=== PATIENT | female | born 1930 | race Caucasian/White ===

== ENCOUNTER 2016-06-28 12:18 | Inpatient (IN) | payer MEDICARE, OTHER ==
[~2016-06-28] VITALS: Ht 160 cm; Wt 68.5 kg
--- NOTE | ~2016-06-28 | PR ---
[place], [place] PROGRESS NOTE NAME: ANTON ROMO UNIT #: [id number] ROOM: 317 DOCTOR: JOSUE ROBLES MD BIRTHDATE: [birth year] DOS: 07/09/2016 CHIEF COMPLAINT: "Good morning." SUMMARY OF THE VISIT: The patient was interviewed as she sat in a Mere chair in the dining area waiting for breakfast. She was initially dosing, but did awake and engage in conversation with me. She was superficially bright and pleasant limited spontaneity was noted. There was no agitation or aggression. Mood did seem to be brighter today. MENTAL STATUS: She is alert and oriented with significant time gaps. Mood is trending towards euthymia. Affect is more appropriate. There are no symptoms of mello or hypomania. There are no overt auditory or visual hallucinations. No delusions were present. Memory is exceptionally poor. PLAN: At the present time, I will maintain the current psychotropic regimen, engage in individual and magallanes milieu therapy, returning then to her long-term care facility when psychiatrically stable. JOSUE ROBLES MD CM:PNTRANS 0807 JOSUE ROBLES MD 07/10/167 interface
--- NOTE | ~2016-06-28 | PR ---
[place], [place] PROGRESS NOTE NAME: ANTON ROMO UNIT #: [id number] ROOM: 317 DOCTOR: JOSUE ROBLES MD BIRTHDATE: [birth year] DOS: 07/05/2016 INTERVAL NOTE CHIEF COMPLAINT: "Morning, is someone going to get me up." SUMMARY OF THE VISIT: The patient was interviewed as she rested quietly in bed. She awoke easily and engaged readily in conversation. She was somewhat terse at first, but softened as we had an opportunity to talk. Mood does seem to be slightly better and she does seem to be improving overall. Nurses report though that she continues to exhibit some mood lability and extreme depression at times. She is tolerating the current medication well and I see no overt side effects from the medicines themselves. MENTAL STATUS: She is alert and oriented to person, place, and approximate to time. Mood does seem to be trending towards euthymia, but there is still a great deal of depressive overtones. There is no mello or hypomania. There are no overt auditory or visual hallucinations. No delusions, no paranoia. Short term memory has gaps, otherwise she is intact. PLAN: I will renew her Ativan p.r.n. in case she requires any intervention. Her valproic acid level was in the low range of therapeutic at 62.9. Given the fact that she still has persistent mood lability, I will increase Depakote from 250 mg twice daily to 250 mg 3 times a day and recheck a valproic acid level in the a.m. Engage her in individual and magallanes milieu activity with the ultimate plan to return to a long-term care facility when psychiatrically stable. JOSUE ROBLES MD CM:PNTRANS 0826 JOSUE ROBLES MD 07/06/16 0125 interface
--- NOTE | ~2016-06-28 | PR ---
[place], [place] PROGRESS NOTE NAME: ANTON ROMO UNIT #: [id number] ROOM: 317 DOCTOR: JOSUE ROBLES MD BIRTHDATE: [birth year] DOS: 07/08/2016 INTERVAL NOTE CHIEF COMPLAINT: "I don't know what I am doing here." SUMMARY OF THE VISIT: The patient was interviewed in the dining area. She was sitting in a Mere chair with a blanket wrapped around her. She was very flat and blunted, very angry appearing. Her responses to me were short and terse. She seemed extremely depressed, more so than she had been over the weekend. Nurses' report, however, that she had episodes of striking out at herself and others last evening, this despite me increasing the Depakote from 250 mg 3 times a day to 500 mg b.i.d., unclear if some of her blunted affect now was because of the dose increase. We will need to support and monitor. MENTAL STATUS: She is alert and oriented to self. It is unclear if she realizes she is in the hospital and she is not oriented to time. Mood this morning seem to be very depressed and her affect was flat and blunted with a constricted range. She did not voice any symptoms suggestive of mello or hypomania nor did she voice any auditory or visual hallucinations. Short-term memory remains poor. PLAN: At the present time, given the fact I had just increased the dose of the Depakote, I will monitor and support. We will determine whether or not this is just episodic mood lability and will then address the medications accordingly. We will discharge when psychiatrically stable. JOSUE ROBLES MD CM:PNTRANS 0845 [id number] JOSUE ROBLES MD 07/08/16 1052 interface
--- NOTE | ~2016-06-28 | PR ---
[place], [place] PROGRESS NOTE NAME: ANTON ROMO UNIT #: [id number] ROOM: 317 DOCTOR: JOSUE ROBLES MD BIRTHDATE: [birth year] DOS: 07/06/2016 INTERVAL NOTE CHIEF COMPLAINT: "Good morning, how are you." SUMMARY OF THE VISIT: The patient was interviewed in the dining area where she sat in a Mere chair. She was fairly pleasant and did seem to be slightly brighter than she had been. She still is somewhat fretful and anxious. She was stating that she had not had breakfast, although she did. Her mood does seem to be less labile and there certainly has been much less outbursts of verbal tirades or physical aggression. She seems to be tolerating the current medication regimen well and I see no sedation, somnolence or any other side effects from the medicines themselves. MENTAL STATUS: She is alert and oriented to person most likely to place, but not time. Mood does seem to be trending towards euthymia. Affect is more appropriate. There is no mello or hypomania. There are no overt auditory or visual hallucinations. No delusions are voiced. Short term memory remains exceedingly poor. PLAN: Her valproic acid level is therapeutic at 62.9. At the present time, I will maintain her current psychotropic regimen. Continue to engage her in individual and magallanes milieu activity. We will look to find an appropriate placement for her when psychiatrically stable. JOSUE ROBLES MD CM:PNTRANS [id number] JOSUE ROBLES MD 07/06/16 2355 interface
--- NOTE | ~2016-06-28 | PR ---
[place], [place] PROGRESS NOTE NAME: ANTON ROMO UNIT #: [id number] ROOM: 317 DOCTOR: JOSUE ROBLES MD BIRTHDATE: [birth year] DOS: 07/07/2016 CHIEF COMPLAINT: "Good morning." SUMMARY OF THE VISIT: The patient was interviewed in the dining area where she sat in a Mere chair with a tray table. She was resting at first, but did awake and engaged readily in conversation, it was mostly superficial. There was limited spontaneity. There was, however, no agitation or aggression. She does seem to be tolerating the current medication regimen well without any apparent side effects. MENTAL STATUS: She is alert and oriented to self, place, possibly not time. Mood does seem to be trending towards euthymia. Affect is more appropriate. There are no symptoms of mello or hypomania. There are no overt auditory or visual hallucinations. No delusions are present. Short term memory is poor. PLAN: Her valproic acid level is therapeutic once again at 62.9. Nurses do report some episodic mood lability. Given the fact that we do have some room to increase her Depakote safely, I will try to bring the level roughly to 80, so I will bring the Depakote Sprinkles up to 500 mg twice daily. Support and monitor, engage in individual and magallanes milieu activity with the ultimate plan then to return to the least restrictive environment when stable. JOSUE ROBLES MD CM:PNTRANS [id number] JOSUE ROBLES MD 07/07/16 1656 interface
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
--- NOTE | ~2016-06-28 | PR ---
[place], [place] PROGRESS NOTE NAME: ANTON ROMO UNIT #: [id number] ROOM: 317 DOCTOR: EMBER SETH BIRTHDATE: [birth year] DOS: 07/04/2016 CHIEF COMPLAINT: "Good morning." SUMMARY OF VISIT: The patient was assessed in her room where she was working with physical therapy. She engaged readily in conversation. Much more alert and oriented today than she was yesterday, expressing hungry for breakfast and wanted to make her way down to the dining room. MENTAL STATUS: Alert and oriented to person, place, I do not know about time. Mood is definitely trending towards euthymic. Affect was much more appropriate. The lethargy seems to be improving. No overt signs of auditory or visual hallucinations, delusions, paranoia, mello, or hypomania. There are some memory gaps, some slow processing at times. PLAN: Continue with the Trintellix 20 mg at bedtime. I did decrease her Depakote yesterday from t.i.d. to twice a day because I felt that she was a little bit lethargic. Her valproic acid level at that time was 62.9, the therapeutic range. I am going to hold her medications where they are right now. Let us see how she does over the next 24 hours. if I need to pull back more on the Depakote or leave it where it is at, I will have a little bit more time under my belt to make that decision. Again, we will continue to engage in individual and magallanes milieu therapy with the plan to discharge once stable. NOLA SETH CNP CM:PNTRANS 0806 [id number] EMBER SETH 07/04/16 2317 interface
--- NOTE | ~2016-06-28 | PR ---
[place], [place] PROGRESS NOTE NAME: ANTON ROMO UNIT #: [id number] ROOM: 317 DOCTOR: EMBER SETH BIRTHDATE: [birth year] DOS: 07/10/2016 CHIEF COMPLAINT: "Good morning." SUMMARY OF VISIT: The patient assessed in Mere chair in the dining room. She was pleasant. Minimal conversation. No voiced issues per nursing. MENTAL STATUS: She is alert and oriented to person, place, I do not think time. Mood definitely trending towards euthymic. Affect is appropriate. No overt signs of auditory or visual hallucinations, delusions or paranoia, poor memory. PLAN: I am going to continue with the current psychotropics where they are. We will continue to try to engage in individual and magallanes milieu therapy. Her valproic acid level is therapeutic. Plan to discharge once stable. NOLA SETH CNP CM:PNTRANS 0 EMBER SETH 07/11/16 0102 interface
--- NOTE | ~2016-06-28 | PR ---
[place], [place] PROGRESS NOTE NAME: ANTON ROMO UNIT #: [id number] ROOM: 317 DOCTOR: EMBER SETH BIRTHDATE: [birth year] DOS: 07/03/2016 CHIEF COMPLAINT: "Good morning." SUMMARY OF VISIT: The patient was assessed in the dining room where she was sitting in a Mere chair waiting for breakfast. She engaged in minimal conversation. Overall, she seemed sedated, but it was more of a medication sedation rather than just being tired. She stated that she was not sure if she slept well, does not know if she has much of an appetite. MENTAL STATUS: She is alert and oriented to person, place, I do not know about time. It is hard to assess her mood. I do not know that she is necessarily depressed. I do feel that she is sedated by some of the medications that we have her on. Her affect was appropriate. There is no mello or hypomania. No overt signs of auditory or visual hallucinations, delusions, paranoia. There are memory gaps. PLAN: I discussed with Dr. Gomez, where I will leave the Trintellix at 20 mg every day, it seems to be helping more as an antidepressant. I am pulling back on the Depakote, I am taking it from 3 times a day down to twice a day. Her valproic acid level on the was 62.9, it is in the therapeutic range, but I just feel that this medication is causing some of the sedation that I am seeing. With this decrease, I am going to see how she does tomorrow and I may continue to pull back on it further. We will try to engage in individual and magallanes milieu therapy with the plan to discharge once stable. NOLA SETH CNP CM:PNKOSTA 4 [id number] EMBER SETH 07/03/16 2335 interface
--- NOTE | ~2016-06-28 | PR ---
[place], [place] PROGRESS NOTE NAME: ANTON ROMO UNIT #: [id number] ROOM: 317 DOCTOR: JOSUE ROBLES MD BIRTHDATE: [birth year] DOS: 07/01/2016 INTERVAL NOTE CHIEF COMPLAINT: "When do I get to go home?" SUMMARY OF THE VISIT: The patient was interviewed as she sat in a Mere chair in the dining area. Upon approach, she appeared extremely depressed and despondent. She was fixated on being able to leave here and go home. She did endorse feeling depressed and upset with her continued stay here. She reports sleep is not always good and her appetite varies. There was no agitation with the verbal lability, but she was rather irritable. MENTAL STATUS: She is alert and oriented to person, possibly place, not time. Mood does seem to be labile. Affect at times is inappropriate. There does seem to be a predominant depressive component present. There was no voice delusion or paranoia. Short-term memory was poor. PLAN: Her valproic acid level obtained this morning is therapeutic at 62.9. I will go ahead and augment with Trintellix 10 mg a day to combat the depressive symptomatology. Continue to engage her in individual and magallanes milieu activity with the ultimate plan to return to her long-term care facility when stable. JOSUE ROBLES MD CM:PNTRANS 0820 002 JOSUE ROBLES MD 07/02/16 0020 interface
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
--- NOTE | ~2016-06-28 | PR ---
[place], [place] PROGRESS NOTE NAME: ANTON ROMO UNIT #: [id number] ROOM: 317 DOCTOR: JOSUE ROBLES MD BIRTHDATE: [birth year] DOS: 07/02/2016 CHIEF COMPLAINT: "Good morning, I am ready for breakfast." SUMMARY OF THE VISIT: The patient was interviewed as she reclined in a Mere chair in the dining area. She awoke as I approached and did engage in brief conversation, reporting to me that she was ready for breakfast. She seems slightly brighter today than yesterday. She offered no other complaints, reporting that she slept well. She denies any medication side effects. MENTAL STATUS: She is alert and oriented to person, place, and approximate to time. Mood does seem to be trending towards euthymia. Affect is more appropriate. There is no hypomania or mello. There are no overt auditory or visual hallucinations. No delusions, no paranoia. Short term memory has gaps, otherwise she is intact. PLAN: I will go ahead and increase the Trintellix from 10 mg a day to 20 mg a day to attempt to maximize antidepressant efficacy. We will engage her in individual and magallanes milieu activity. Finalize discharge plans and discharge to the least restrictive environment when psychiatrically stable. JOSUE ROBLES MD CM:PNTRANS 0800 0142 JOSUE ROBLES MD 07/03/16 0143 interface
--- NOTE | ~2016-06-28 | PR ---
[place], [place] PROGRESS NOTE NAME: ANTON ROMO UNIT #: [id number] ROOM: 317 DOCTOR: JOSUE ROBLES MD BIRTHDATE: [birth year] DOS: 06/30/2016 CHIEF COMPLAINT: "I don't feel good and cold." SUMMARY OF THE VISIT: The patient was interviewed as she rested in a Mere chair in the dining area. Upon approach she told me that she was not feeling well and that she was feeling cold and requested another blanket. When I told her I would get her one, she thanked me profusely. She voiced no other complaints. She did state that she slept well and ate well. She could not tell me how long she has been here nor could she remember what she had for breakfast. Nurses report, she remains basically pleasantly confused. She has been seen talking to unforeseen others and seemingly remains grossly psychotic. MENTAL STATUS: She is alert and oriented to self. It is unclear if she realizes place and certainly not time. Mood still shows mood lability and she is actively psychotic. Short term memory is exceedingly poor. PLAN: I will increase Exelon patch from 9.5-13.3 mg daily, maximizing out its potential benefit. Maintain her current dose of Depakote. I will check a Depakote level in the a.m. to ensure that it is therapeutic. Continue to engage in individual and magallanes milieu activity with the ultimate plan to return to the least restrictive environment when psychiatrically stable. JOSUE ROBLES MD CM:PNTRANS 1037 2211 JOSUE ROBLES MD 06/30/16 2213 interface
[2016-06-28] MEDS ORDERED: CALCIUM CIT-VI1 EAC1 PO (12:30)
[2016-06-28] MEDS ORDERED: IBUPROFEN600 MG PO (12:31)
[2016-06-28] MEDS ORDERED: LOSARTAN POTASS1 TA6 PO (12:36)
[2016-06-28] MEDS ORDERED: MAPAP500 M1 PO (12:37)
[2016-06-28] MEDS ORDERED: Lopressor25 MG PO (12:38)
[2016-06-28] MEDS ORDERED: K-TAB20 MEQ PO (12:40)
[2016-06-28] MEDS ORDERED: ZOCOR40 MG PO (12:40)
[2016-06-28] MEDS ORDERED: Synthroid,Levo50 MCG PO (12:43)
[2016-06-28] MEDS ORDERED: CELEXA10 MG PO (12:48)
[2016-06-28] MEDS ORDERED: HYDROCORTISONE30 GM T (12:49)
[2016-06-28] MEDS ORDERED: VITAMIN D-32000 UNIT PO (15:14)
[2016-06-28] MEDS ORDERED: ARICEPT10 M1 PO (15:19)
[2016-06-29 07:25] LABS: BASO % 0.4 % (0.0-1.0); EOS # 0.1 10*3/uL (0.0-0.4); EOS % 1.4 % (1.0-4.0); HEMATOCRIT 40.9 % (37.0-47.0); HEMOGLOBIN 13.2 g/dl (12.0-16.0); LYMPH # 2.4 10*3/uL (1.3-4.4); LYMPH % 29.1 % (27.0-41.0); MEAN CELL VOLUME 93.4 fl (81.0-99.0); MEAN CORPUSCULAR HGB 30.1 pg (27.0-31.0); MEAN CORPUSCULAR HGB CONC 32.3 g/dl (33.0-37.0); MEAN PLATELET VOLUME 9.9 fl (9.6-12.3); MONO # 0.9 10*3/uL (0.1-1.0); MONO % 10.6 % (3.0-9.0); NEUT # 4.9 10*3/uL (2.3-7.9); NEUT % 58.3 % (47.0-73.0); PLATELET COUNT AUTOMATED 207 10*3/uL (130-400); RED BLOOD COUNT 4.38 10*6/uL (4.10-5.10); RED CELL DISTRI WIDTH 13.2 % (0-14.5); WHITE BLOOD COUNT 8.4 10*3/uL (4.8-10.8)
[2016-06-29 07:54] LABS: BILIRUBIN, TOTAL 0.6 mg/dl (0.2-1.0); BUN 25 mg/dl (7-24); CARBON DIOXIDE 27 mmol/L (21-32); CHLORIDE 107 mmol/L (98-107); CHOLESTEROL 163 mg/dL (<200); EST GLOM FILT AFRICAN AMERICAN > 60 ml/min; GLUCOSE 95 mg/dL (65-99); HDL CHOLESTEROL 81 mg/dl (40-60); LDL CHOLESTEROL 60 mg/dL (9-159); POTASSIUM 3.9 mmol/L (3.5-5.1); SGOT/AST 21 IU/L (3-35); SGPT/ALT 16 U/L (12-78); SODIUM 143 mmol/L (136-145); TRIGLYCERIDES 111 mg/dl (<150); VLDL CHOLESTEROL 22 mg/dL (6-40)
[2016-06-29 08:00] VITALS: BP 123/68
[2016-06-29 08:01] LABS: ALKALINE PHOSPHATASE 82 U/L (45-117)
[2016-06-29 08:39] LABS: VITAMIN D, 25-HYDROXY 33.9 ng/mL (30-100)
[2016-06-29 14:20] LABS: BILIRUBIN NEGATIVE (NEGATIVE); BLOOD NEGATIVE (NEGATIVE); CLARITY CLEAR (CLEAR); COLOR YELLOW (YELLOW); GLUCOSE NEGATIVE (NEGATIVE); KETONE NEGATIVE (NEGATIVE); LEUKO ESTERASE 1+ (NEGATIVE); NITRITE NEGATIVE (NEGATIVE); PROTEIN NEGATIVE (NEGATIVE); SPECIFIC GRAVITY 1.015 (1.005-1.030); UROBILINOGEN 0.2 E.U./dl (0.2-1.0)
[2016-06-29 14:35] LABS: BACTERIA 1+; URINE REFLEX COMMENT YES (NO); WBC 16-20 wbc/hpf (0-5)
[2016-06-29 19:41] VITALS: BP 120/94
[2016-06-30 08:00] VITALS: BP 123/74
[2016-06-30 19:39] VITALS: BP 120/66
[2016-07-01 07:45] VITALS: BP 105/52
[2016-07-01 21:06] VITALS: BP 117/45
[2016-07-02 07:52] VITALS: BP 129/59
[2016-07-02 20:00] VITALS: BP 122/56
[2016-07-03 07:42] VITALS: BP 103/54
[2016-07-03 20:00] VITALS: BP 122/50
[2016-07-04 06:47] VITALS: BP 105/63
[2016-07-04 09:54] VITALS: BP 105/53
[2016-07-04 20:00] VITALS: BP 116/55
[2016-07-05 07:39] VITALS: BP 117/43
[2016-07-05 20:07] VITALS: BP 122/61
[2016-07-06 07:49] VITALS: BP 116/56
[2016-07-06 19:33] VITALS: BP 131/98
[2016-07-07 08:11] VITALS: BP 123/56
[2016-07-07 20:35] VITALS: BP 100/52
[2016-07-08 08:00] VITALS: BP 110/54
[2016-07-08 20:52] VITALS: BP 100/60; BP 108/48
[2016-07-09 08:02] VITALS: BP 115/66
[2016-07-09 20:00] VITALS: BP 116/57
[2016-07-10 07:57] VITALS: BP 111/62
[2016-07-10 08:20] VITALS: BP 102/60
[2016-07-10 20:10] VITALS: BP 120/99
[2016-07-11 07:52] VITALS: BP 110/53
[2016-07-11] MEDS ORDERED: BRIN20TA PO (08:50)
[2016-07-11] MEDS ORDERED: MEMANTINE HCL10 MG PO (08:50)
[2016-07-11] MEDS ORDERED: DIVALPROEX SOD125 M1 PO (08:50)
[2016-07-11] MEDS ORDERED: EXELON13.3 MG/21 T (08:50)
== END 2016-07-11 11:01 | disposition home or self-care (01) | DRG 885 ==
LOC: 3N 12:18
PROVIDERS: Psychiatry & Neurology Psychiatry
DX: F23 Brief psychotic disorder (principal); G30.9 Alzheimer's disease, unspecified; F02.80 Dementia in other diseases classified elsewhere, unspecified severity, without behavioral disturbance, psychotic disturbance, mood disturbance, and anxiety; I73.9 Peripheral vascular disease, unspecified; K26.9 Duodenal ulcer, unspecified as acute or chronic, without hemorrhage or perforation; E78.5 Hyperlipidemia, unspecified; E78.00 Pure hypercholesterolemia, unspecified; E03.9 Hypothyroidism, unspecified; Z85.3 Personal history of malignant neoplasm of breast; Z88.5 Allergy status to narcotic agent; Z88.8 Allergy status to other drugs, medicaments and biological substances; Z88.6 Allergy status to analgesic agent; Z79.1 Long term (current) use of non-steroidal anti-inflammatories (NSAID); Z79.899 Other long term (current) drug therapy

== ENCOUNTER 2016-08-01 15:28 | Inpatient (IN) | payer MEDICARE, OTHER ==
[~2016-08-01] VITALS: Ht 160 cm; Wt 68.5 kg
--- NOTE | ~2016-08-01 | PR ---
[place], [place] PROGRESS NOTE NAME: ANTON ROMO UNIT #: [id number] ROOM: 311 DOCTOR: EMBER SETH BIRTHDATE: [birth year] DOS: 08/03/2016 CHIEF COMPLAINT: "Good morning." SUMMARY OF VISIT: The patient was assessed in her room where she was lying in the covers. Primarily, did not want to talk to me, kind of had to track things out of her. Concerns from nursing as her mood is quite labile. She did have an episode of spitting yesterday. She is being predominantly behavioral. MENTAL STATUS: She is alert and oriented to person, place, I do not know about time. Mood depressed, labile. Affect flat, blunted in the constricted range. No overt signs of auditory or visual hallucinations. No mello or hypomania, delusions or paranoia. PLAN: I am going to go ahead and increase her Depakote from 500 mg t.i.d. 1000 mg b.i.d. Her valproic acid level came back yesterday at 37.3, so in a low end and we will monitor, I do not want her overly sedate. The goal is to try to get some of this lability and impulsivity under control and get her opening up a little bit more. She is on the maximum dose of medications for her dementia. We will continue to monitor, see how her sleep is and if need be, we will look at adding some Remeron to help with sleep if necessary. Continue to try to engage in individual and magallanes milieu therapy, discharge when stable. NOLA SETH CNP CM:PNTRANS 0740 1201 EMBER SETH 08/03/16 1200 interface
--- NOTE | ~2016-08-01 | PR ---
[place], [place] PROGRESS NOTE NAME: ANTON ROMO UNIT #: [id number] ROOM: 311 DOCTOR: CHANTEL DO BIRTHDATE: [birth year] DOS: 08/13/2016 CHIEF COMPLAINT: This morning . SUMMARY OF THE VISIT: She was in the dining room where she was actually feeding herself. She still remains with an irritable edge, but has not had behaviors, sleeping still well at night. They said that she spit out her meds yesterday afternoon, they had to give her an Ativan injection at 2041 and then she did sleep after that. It seems like her agitation is worse and the anxiety is worse in the afternoon. PLAN: We will add an afternoon dose of Klonopin 0.5 around 4:00 and see if we can head off those behaviors that she seems to have in the evening. We will continue to try to engage her in individual and magallanes milieu and discharge her to the least restrictive environment as soon as she is psychiatrically stable. Chantel Do NP CM:PNKOSTA 0847 0020 CHANTEL DO 08/14/16 0019 interface
--- NOTE | ~2016-08-01 | PR ---
[place], [place] PROGRESS NOTE NAME: ANTON ROMO UNIT #: [id number] ROOM: 311 DOCTOR: CHANTEL DO BIRTHDATE: [birth year] DOS: 08/08/2016 The patient on the Behavioral Health Unit. CHIEF COMPLAINT: "Hello." SUMMARY OF CLINIC VISIT: The patient passed a pretty good night last night. She slept pretty well, but she did refuse her morning medications. She took her evening medications okay. She is alert. She is much more pleasant and cooperative today than she has been over the rest of her stay here. PLAN: We will increase her Nuedexta to b.i.d. to maximize that therapy and continue to engage her in individual and magallanes milieu, discharging her to the least restrictive environment when she is psychologically stable. Chantel Do NP CM:SIOMARA 0 CHANTEL DO 08/08/16920 interface
--- NOTE | ~2016-08-01 | PR ---
[place], [place] PROGRESS NOTE NAME: ANTON ROMO UNIT #: [id number] ROOM: 311 DOCTOR: CHANTEL DO BIRTHDATE: [birth year] DOS: 08/05/2016 CHIEF COMPLAINT: "Hello, how are you." SUMMARY OF THE VISIT: She was in bed. She had finished her breakfast. Intakes have been poor according to the nursing staff. She still speaks in a low tone, has kind of an aggressive edge to her whenever you speak with her. She says that she slept well. She slept most of the day yesterday according to the staff and then she started talking about "I won't tolerate this." She was pointing to a brief that she was wearing in bed, so I explained to her that was just in case she had an accident, but she did not really want to hear much of what I had to say. PLAN: We have discharged her Vistaril in favor of Nuedexta due to her repetitive behaviors and acting out and such. We will titrate up the Nuedexta as needed and continue to engage her in individual and magallanes milieu and discharge her to the least restrictive environment when she is psychologically stable. Chantel Do NP CM:SIOMARA [id number] CHANTEL DO 08/06/16155 interface
--- NOTE | ~2016-08-01 | PR ---
[place], [place] PROGRESS NOTE NAME: ANTON ROMO UNIT #: [id number] ROOM: 311 DOCTOR: CHANTEL DO BIRTHDATE: [birth year] DOS: CHIEF COMPLAINT: "How are you today." SUMMARY OF THE VISIT: She was seen in the hallways where she was standing and working on balance with therapy. She was smiling, pleasant. Speech was pretty much nonnonsensical. The answers to the questions were not appropriate, but her affect is definitely much better than it has been over the few days. She is currently awaiting a speech therapy consult because she was coughing while she was eating yesterday. She was started on Nuedexta just yesterday. PLAN: To increase the Nuedexta over the next couple of days to twice a day. Continue to engage her in individual and magallanes milieu and discharge her to the least restrictive environment when she is psychologically stable. Chantel Do NP CM:PNKOSTA 34 CHANTEL DO 08/06/162133 interface
--- NOTE | ~2016-08-01 | DS ---
[place], [place] DISCHARGE SUMMARY NAME: ANTON ROMO UNIT #: [id number] ROOM: 311 DOCTOR: CHANTEL DO BIRTHDATE: [birth year] DOS: 08/14/2016 CHIEF COMPLAINT: This morning of "Leave me alone." HISTORY OF PRESENT ILLNESS: She was admitted from retirement facility where she was swearing, refusing to take her meds and spitting on the floor. She is well known to us here on the U. She has dementia and has been here several times for medication stabilization. PAST MEDICAL HISTORY: Dementia, duodenal ulcer, high cholesterol, hypothyroidism. She does have a history of left breast CA. SUMMARY OF HOSPITAL COURSE: She came in and we began titrating up her Nuedexta, also maximized her Exelon patch to 13.3 to treat her dementia. She has been emotionally labile, yelling out, screaming, swearing since she has been on the unit. We have tried Depakote, which was titrated according to her blood levels to try to maintain therapeutic level that eventually was discontinued because she was not compliant with it. She was then started on Klonopin, which has been titrated up several times and seems to be working at least partially with treating her anxiety. Vistaril was also attempted to treat her anxiety and that was not effective either. MENTAL STATUS AT DISCHARGE: She is alert. She continues to be confused, oriented only to herself. She does talk to herself, but it is in a lower tone. She does continue to swear at times and uses inappropriate language, but she is more stable than she was and less labile than she was when she came in. DIAGNOSIS: Brief psychotic disorder. DISPOSITION: She will be discharged back to her nursing facility. Her scripts have been transmitted to her pharmacy and prescription for her Klonopin have been printed. [place], [place] DISCHARGE SUMMARY NAME: ANTON ROMO UNIT #: [id number] ROOM: 311 DOCTOR: CHANTEL DO BIRTHDATE: [birth year] Chantel Do NP CM:DISCHARG 6 48 CHANTEL DO 08/14/161847 interface
--- NOTE | ~2016-08-01 | PR ---
[place], [place] PROGRESS NOTE NAME: ANTON ROMO UNIT #: [id number] ROOM: 311 DOCTOR: CHANTEL DO BIRTHDATE: [birth year] DOS: 08/02/2016 SUBJECTIVE: The patient was admitted to the [facility] on 08/01/2016 because she was having behavior symptoms at the snf facility, swearing, spitting on the floor. She was not taking her meds. She is known to us on the Behavioral Health Unit for similar behavior. She is confused, oriented to self only. PAST MEDICAL HISTORY: Dementia, duodenal ulcers, high cholesterol, hypothyroidism. She also has a history of breast cancer. MENTAL STATUS: She has her head lying on the table in the breakfast room. She is oriented to herself, not able to ascertain whether she is oriented to place or time. Her speech is very low volume. She only gives short answers to questions. She says that she just does not feel well. She does not appear to be manic or hypomanic and does not appear to be having any hallucinations, delusions or paranoia. DIAGNOSES FOR THIS ADMISSION: Brief psychotic disorder. PLAN: We will maximize her dementia meds increase her Namenda to XR 221 mg, and her Exelon patch maximize to 13.3. Her Depakote level was subtherapeutic, so we will also increase her Depakote to help deal with those behaviors that she has been having. Chantel Do NP CM:PNTRANS 0841 CHANTEL DO 08/02/16 2345 interface
--- NOTE | ~2016-08-01 | PR ---
[place], [place] PROGRESS NOTE NAME: ANTON ROMO UNIT #: [id number] ROOM: 311 DOCTOR: CHANTEL DO BIRTHDATE: [birth year] DOS: 08/09/2016 CHIEF COMPLAINT: This morning, I feel pretty good. SUMMARY OF THE VISIT: The resident was lying in bed, had the covers up over her head, but she did respond with short answers to me today. She did refuse all of her p.o. medications yesterday in the morning, but has been willing to take them in the evening and in the nighttime. PLAN: We will change as many as of her medications to either bedtime or evening when she is a little more cooperative, also renewed her Ativan order for today, although she has not really required it all that much. We will continue to engage her in individual and magallanes milieu and discharge her to the least restrictive environment as soon as she is psychologically stable. Chantel Do NP CM:SIOMARA [id number] CHANTEL DO 08/09/162103 interface
--- NOTE | ~2016-08-01 | PR ---
[place], [place] PROGRESS NOTE NAME: ANTON ROMO UNIT #: [id number] ROOM: 311 DOCTOR: JOSUE ROBLES MD BIRTHDATE: [birth year] DOS: 08/11/2016 CHIEF COMPLAINT: "Morning." SUMMARY OF THE VISIT: The patient was interviewed as she was resting quietly in bed. She was sleeping as I entered the room, but awoke easily when I called her name. She voiced no complaints, but did state that she was ready to have helped to go down for breakfast. Yesterday, she continued to have periods of agitation, but seem to redirect more readily. She tolerated the Klonopin well and did actually sleep better with it last night. MENTAL STATUS: She is alert and oriented to self only. She is grossly confused and disoriented. Her responses tend to be short and simple and at times disjointed from the conversation that was being offered. There is no voice delusions at this point and no overt auditory hallucinations or delusions. Memory is extremely poor and she processes extremely slowly. PLAN: Given the fact that I had just started the Klonopin yesterday, I will maintain the dose at the 1 mg twice a day level. I may need to adjust this accordingly. We will continue to support and monitor to see if this impacts positively on her anxiety and resolve an agitation. JOSUE ROBLES MD CM:PNTRANS [id number] JOSUE ROBLES MD 08/11/16 2315 interface
--- NOTE | ~2016-08-01 | PR ---
[place], [place] PROGRESS NOTE NAME: ANTON ROMO UNIT #: [id number] ROOM: 311 DOCTOR: EMBER SETH BIRTHDATE: [birth year] DOS: 08/04/2016 CHIEF COMPLAINT: The patient is nonverbal. SUMMARY OF VISIT: The patient was assessed in the quiet area across the nurse's station where she was sitting in a Mere chair. She was sleeping and did not engage in conversation, so limited interactions, did discuss with nurses. She predominantly sits or lies in bed or in the chair and covers her head with a blanket. However, she is cursing under her breath pretty much /. It gets worse later in the evening to the point where her whole body just shake, she seems so irritable and stressed and agitated and just curses. I did increase her Depakote yesterday because her valproic acid level was subtherapeutic. PLAN: I am going to add a low dose Vistaril 25 mg t.i.d. scheduled to see if this will help with her anxiety, agitation, maybe take the edge off of her giving Depakote time to titrate up into her system and do its job and then we can wean away or stop the Vistaril. I definitely do not want to send her out with polypharmacy but right now she just so miserable and then just cursing all the time. At this point, where she clenches her teeth and makes a fist and just shakes. We will continue to try to engage in individual and magallanes milieu therapy, long-term plan is to discharge when stable. NOLA SETH CNP CM:PNTRANS [id number] EMBER SETH 08/04/16 1252 interface
--- NOTE | ~2016-08-01 | PR ---
[place], [place] PROGRESS NOTE NAME: ANTON ROMO UNIT #: [id number] ROOM: 311 DOCTOR: JOSUE ROBLES MD BIRTHDATE: [birth year] DOS: 08/10/2016 CHIEF COMPLAINT: "I am cold, I need a blanket." SUMMARY OF THE VISIT: The patient was interviewed in her room. Prior to me entering the room, she was yelling out loudly for no apparent reason. Nurses report asked too many of the patient said she continued to have outbursts of yelling throughout the night requiring p.r.n. intervention with fairly good results. She does seem to respond to the p.r.n. Ativan fairly well. She remains episodically noncompliant with her meds of late, refusing most of the daytime meds, but taking nighttime meds. MENTAL STATUS: She is alert to self only. She is very confused and disoriented. Most of her responses this morning were short and simple, at times nonsensical. At times, her responses did not match up to the question being asked of her. There are no overt auditory or visual hallucinations or mello or hypomania. Memory is extremely poor and her processing ability likewise is poor. PLAN: I will discontinue Depakote as she is so episodically noncompliant with it. Instead, I will use Klonopin 1 mg twice daily with my hope to build up the nighttime dose, so that she is at least sleeping better at night. I do question if some of her yelling is driven from anxiety and her response to her environment if I can decrease her anxiety, my hope then is that we will decrease some of these yelling outbursts. We will monitor and support, engage in individual and magallanes milieu activity. JOSUE ROBLES MD CM:PNTRANS [id number] JOSUE ROBLES MD 08/10/16 1000 interface
--- NOTE | ~2016-08-01 | PR ---
[place], [place] PROGRESS NOTE NAME: ANTON ROMO UNIT #: [id number] ROOM: 311 DOCTOR: CHANTEL DO BIRTHDATE: [birth year] DOS: 08/12/2016 CHIEF COMPLAINT: "I am not hungry." SUMMARY OF THE VISIT: She was sleeping in her room whenever I came in. Asked her if she wanted to eat, she said no. MENTAL STATUS EXAMINATION: She is alert and oriented to herself. Continues to be grossly confused. Gives short answers to questions. She has no mello or hypomania. She does have memory gaps and processes slowly. PLAN: Her Klonopin was just adjusted yesterday. The dose was increased. We will increase once again go to 0.5 mg in the morning and 2 mg at bedtime. She has not been sleeping, so we are hoping that, that will get her some sleep through the night. We will continue to engage her in individual and magallanes milieu, as she is willing to participate and discharge her to the least restrictive environment whenever she is psychologically stable. Chantel Do NP CM:PNKOSTA 7 5 CHANTEL DO 08/12/16 0945 interface
--- NOTE | ~2016-08-01 | PR ---
[place], [place] PROGRESS NOTE NAME: ANTON ROMO UNIT #: [id number] ROOM: 311 DOCTOR: CHANTEL DO BIRTHDATE: [birth year] DOS: CHIEF COMPLAINT: Today, "I don't care." SUMMARY OF THE VISIT: She was up in the Mere chair, sleeping. They were not able to wake her easily. We had just started her on Nuedexta day before yesterday. Her mood and orientation are difficult to assess because she is making eye contact, but she is speaking very low tone and not wanting to really cooperate with me today. PLAN: We will not make any changes today. We will continue to increase the Nuedexta. We will give her time to adjust for right now. We will continue to try to engage her in individual and magallanes milieu and discharge her to the safest possible environment when she is psychologically stable. Chantel Do NP CM:PNTRANS 2 22 CHANTEL DO 08/07/162021 interface
[~2016-08-01 15:28] MED LIST: ARICEPT10 M1 PO; BRIN20TA PO; CALCIUM CIT-VI1 EAC1 PO; CELEXA10 MG PO; DIVALPROEX SOD125 M1 PO; EXELON13.3 MG/21 T; HYDROCORTISONE30 GM T; IBUPROFEN600 MG PO; K-TAB20 MEQ PO; LOSARTAN POTASS1 TA6 PO; Lopressor25 MG PO; MAPAP500 M1 PO; MEMANTINE HCL10 MG PO; Synthroid,Levo50 MCG PO; VITAMIN D-32000 UNIT PO; ZOCOR40 MG PO
[2016-08-01] MEDS ORDERED: BISACODYL10 MG R (16:52)
[2016-08-01] MEDS ORDERED: CELEXA10 MG PO (17:05)
[2016-08-01] MEDS ORDERED: DEPAKOTE250 MG PO (17:06)
[2016-08-01] MEDS ORDERED: NAMENDA XR14 M1 PO (17:07)
[2016-08-01] MEDS ORDERED: NAMENDA-21 PO (17:08)
[2016-08-01] MEDS ORDERED: DEPAKOTE500 MG PO (17:09)
[2016-08-01] MEDS ORDERED: NAMENDA XR28 M1 PO (17:09)
[2016-08-01 19:30] VITALS: BP 112/72
[2016-08-02 06:59] LABS: BASO % 0.5 % (0.0-1.0); EOS # 0.2 10*3/uL (0.0-0.4); EOS % 2.1 % (1.0-4.0); HEMATOCRIT 34.6 % (37.0-47.0); HEMOGLOBIN 11.2 g/dl (12.0-16.0); LYMPH # 2.7 10*3/uL (1.3-4.4); LYMPH % 37.1 % (27.0-41.0); MEAN CELL VOLUME 93.3 fl (81.0-99.0); MEAN CORPUSCULAR HGB 30.2 pg (27.0-31.0); MEAN CORPUSCULAR HGB CONC 32.4 g/dl (33.0-37.0); MEAN PLATELET VOLUME 11.6 fl (9.6-12.3); MONO # 0.9 10*3/uL (0.1-1.0); MONO % 12.7 % (3.0-9.0); NEUT # 3.5 10*3/uL (2.3-7.9); NEUT % 47.3 % (47.0-73.0); PLATELET COUNT AUTOMATED 153 10*3/uL (130-400); RED BLOOD COUNT 3.71 10*6/uL (4.10-5.10); RED CELL DISTRI WIDTH 14.2 % (0-14.5); WHITE BLOOD COUNT 7.3 10*3/uL (4.8-10.8)
[2016-08-02 07:36] LABS: ALBUMIN 2.9 gm/dl (3.1-4.5); BUN 19 mg/dl (7-24); CARBON DIOXIDE 28 mmol/L (21-32); CHLORIDE 104 mmol/L (98-107); GLUCOSE 72 mg/dL (65-99); POTASSIUM 4.5 mmol/L (3.5-5.1); SODIUM 139 mmol/L (136-145)
[2016-08-02 07:46] LABS: ALKALINE PHOSPHATASE 66 U/L (45-117); BILIRUBIN, TOTAL 0.6 mg/dl (0.2-1.0); CHOLESTEROL 129 mg/dL (<200); EST GLOM FILT AFRICAN AMERICAN > 60 ml/min; HDL CHOLESTEROL 62 mg/dl (40-60); LDL CHOLESTEROL 44 mg/dL (9-159); SGOT/AST 21 IU/L (3-35); SGPT/ALT 15 U/L (12-78); TOTAL PROTEIN 6.3 gm/dL (6.4-8.2); TRIGLYCERIDES 117 mg/dl (<150); VLDL CHOLESTEROL 23 mg/dL (6-40)
[2016-08-02 08:00] VITALS: BP 113/65
[2016-08-02 08:36] LABS: BILIRUBIN NEGATIVE (NEGATIVE); BLOOD NEGATIVE (NEGATIVE); CLARITY SL CLOUDY (CLEAR); COLOR YELLOW (YELLOW); GLUCOSE NEGATIVE (NEGATIVE); KETONE TRACE (NEGATIVE); LEUKO ESTERASE 2+ (NEGATIVE); NITRITE NEGATIVE (NEGATIVE); PROTEIN NEGATIVE (NEGATIVE); SPECIFIC GRAVITY <= 1.005 (1.005-1.030); UROBILINOGEN 0.2 E.U./dl (0.2-1.0)
[2016-08-02 09:42] LABS: BACTERIA 2+; URINE REFLEX COMMENT YES (NO); WBC 21-30 wbc/hpf (0-5)
[2016-08-02 09:52] LABS: VITAMIN D, 25-HYDROXY 28.5 ng/mL (30-100)
[2016-08-02 20:10] VITALS: BP 138/85
[2016-08-03 08:20] VITALS: BP 110/75
[2016-08-03 19:51] VITALS: BP 112/66
[2016-08-04 09:24] VITALS: BP 133/59
[2016-08-04 19:41] VITALS: BP 130/62
[2016-08-05 07:45] VITALS: BP 110/62
[2016-08-05 19:56] VITALS: BP 133/64
[2016-08-06 08:09] VITALS: BP 125/62
[2016-08-06 20:16] VITALS: BP 120/78
[2016-08-07 09:42] VITALS: BP 124/68
[2016-08-07 19:52] VITALS: BP 115/65
[2016-08-08 08:27] VITALS: BP 158/72
[2016-08-08 20:06] VITALS: BP 117/50
[2016-08-09 11:45] VITALS: BP 133/64
[2016-08-09 20:00] VITALS: BP 118/74
[2016-08-10 07:45] VITALS: BP 118/52
[2016-08-10 20:18] VITALS: BP 137/86
[2016-08-11 08:50] VITALS: BP 124/50
[2016-08-11 20:00] VITALS: BP 110/70
[2016-08-12 07:55] VITALS: BP 113/64
[2016-08-12 20:08] VITALS: BP 110/56
[2016-08-13 08:00] VITALS: BP 118/71
[2016-08-13 19:57] VITALS: BP 110/55
[2016-08-14 07:56] VITALS: BP 138/67
[2016-08-14] MEDS ORDERED: EXELON13.3 MG/21 T (08:53)
[2016-08-14] MEDS ORDERED: NUED1CAP PO (08:53)
[2016-08-14] MEDS ORDERED: MIRTAZAPINE15 M2 PO (08:53)
[2016-08-14] MEDS ORDERED: KLONOPIN2 M1 PO (08:53)
[2016-08-14] MEDS ORDERED: D-1000 185 MG-11 TAB PO (08:53)
[2016-08-14] MEDS ORDERED: CLONAZEPAM0.5 M2 PO ×2 (08:53)
[2016-08-14] MEDS ORDERED: NAMENDA-5 PO (08:53)
== END 2016-08-14 14:40 | disposition other institution (70) | DRG 885 ==
LOC: 3N 15:28
PROVIDERS: Psychiatry & Neurology Psychiatry
DX: F23 Brief psychotic disorder (principal); E44.0 Moderate protein-calorie malnutrition; F03.91 Unspecified dementia, unspecified severity, with behavioral disturbance; N39.0 Urinary tract infection, site not specified; C50.919 Malignant neoplasm of unspecified site of unspecified female breast; D64.9 Anemia, unspecified; E03.9 Hypothyroidism, unspecified; Z53.29 Procedure and treatment not carried out because of patient's decision for other reasons; E78.00 Pure hypercholesterolemia, unspecified; I73.9 Peripheral vascular disease, unspecified; Z68.26 Body mass index [BMI] 26.0-26.9, adult; Z88.5 Allergy status to narcotic agent; Z88.6 Allergy status to analgesic agent; Z88.8 Allergy status to other drugs, medicaments and biological substances